=== PATIENT | female | born 1955 | race Caucasian/White ===

== ENCOUNTER 2017-08-05 10:32 | Day surgery (SDC) | payer OTHER ==
[2017-08-04 12:46] VITALS: BMI 44.2
[2017-08-05] MEDS ORDERED: Fentanyl 100 MCG/2 ML VIAL ONE ×4 (11:45→13:53)
[2017-08-05] MEDS ORDERED: Midazolam HCl 2 mg/2 ml Vial ONE ×2 (11:45→12:01)
[2017-08-05] MEDS ORDERED: Lidocaine 1% (PF) 30 ML VIAL ONE (11:49)
[2017-08-05] MEDS ORDERED: Propofol 200 MG/20 ML VIAL ONE (12:24)
[2017-08-05] MEDS ORDERED: Lidocaine 2% PF 10 ML AMP (For Epidural Use) ONE (12:24)
[2017-08-05] MEDS ORDERED: Ondansetron HCl/PF 4 MG/2 ML Vial ONE (13:36)
--- NOTE | 2017-08-05 14:10 | OP ---
DATE OF PROCEDURE: 08/05/2017 PREOPERATIVE DIAGNOSIS: Need for long-term central venous access for chemotherapy for lymphoma. POSTOPERATIVE DIAGNOSIS: Need for long-term central venous access for chemotherapy for lymphoma. PROCEDURE: Ultrasound guided left internal jugular vein access with a MediPort placement into the l eft internal jugular vein. ESTIMATED BLOOD LOSS: Less than 20 mL. FLUORO TIME: 33 seconds. SURGEON: Dr. Prince Aleman DESCRIPTION OF PROCEDURE: The patient was placed under general anesthesia in the operating room. L eft chest and neck were prepped and draped in usual sterile fashion. Multiple attempts at accessing the left subclavian vein were made and were unsuccessful. We transitioned to a jugular approach. Ultrasound guidance was used to access the left jugular vein. Guidewire was passed under fluoroscop ic guidance down into the superior vena cava. The MediPort site was then created on the chest wall. After the pocket was created, catheter was tunneled using a stiff tunneler from the pocket up into the jugular vein access site. The port was positioned nicely. Catheter was measured and cut to ap propriate length under fluoro guidance. Sheath was placed under fluoroscopy guidance and the cathet er passed through the sheath. The sheath was then peeled away and removed. The port was then acces sed and aspirated nicely. A flush was used to lock the port. Wounds were then closed in multiple l osorio, and Dermabond applied to the skin. The patient tolerated the procedure well, was awakened, e xtubated, and transferred to the recovery room in stable condition.
[2017-08-05] MEDS ORDERED: Ondansetron HCl/PF 4 MG/2 ML Vial IVP PRN (15:05)
[2017-08-05] MEDS ORDERED: Promethazine HCl 25 MG/ML VIAL IM/IV PRN (15:05)
== END 2017-08-05 15:25 | disposition home or self-care (01) ==
LOC: SDC 10:32
PROVIDERS: ATTEND Thoracic Surgery (Cardiothoracic Vascular Surgery)
PROC: 05HN33Z Insertion of Infusion Device into Left Internal Jugular Vein, Percutaneous Approach (ICD-10-PCS; principal; 2017-08-05)
DX: R59.0 Localized enlarged lymph nodes (principal); F17.210 Nicotine dependence, cigarettes, uncomplicated; Z90.721 Acquired absence of ovaries, unilateral; Z82.49 Family history of ischemic heart disease and other diseases of the circulatory system; Z80.9 Family history of malignant neoplasm, unspecified
CPT/HCPCS: 96374; C1788; J1642; J2001; J2250; J2405; J2704; J3010

== ENCOUNTER 2018-01-12 11:08 | Outpatient (CLI) | payer OTHER ==
--- NOTE | 2018-01-13 09:38 | PET ---
PET CT: HISTORY: A 62-year-old female with high-grade B-cell lymphoma, large B-cell lymphoma of follicular origin. Ex am requested for restaging. Last chemotherapy was in November 2017. TECHNIQUE: PET scanning with CT attenuation correction was performed from the base of the base of the brain thro ugh the proximal thighs following the intravenous administration of 13.2 mCi of [id number] in the left-sided Port-A-Cath. COMPARISON: None. CORRELATION: CT chest dated 10/07/17 from [facility]. FINDINGS: No sara hypermetabolism is seen in the neck, chest, axillae, or abdomen. There is a right-sided pre sacral lymph node with increased FDG localization and an SUV of 6.3. No hypermetabolic pulmonary nodules, liver, or adrenal lesions are seen. There are multiple hypermetabolic skeletal lesions including the left acromion (SUV 10.6), T11 verteb ral body (SUV 15), and right acetabulum (SUV 7.6 in the superior acetabulum and 5.8 in the posterior column). There is a hypermetabolic right paraspinal soft tissue mass extending from L1 to L3 levels with a maximum SUV of 20. IMPRESSION: Findings are consistent with viable lymphoma in the skeleton, right presacral lymph node, and right p araspinal soft tissues. POS: VERONICA
== END 2018-01-12 11:09 | disposition home or self-care (01) ==
LOC: PET 11:08
PROVIDERS: ATTEND Internal Medicine Hematology & Oncology
DX: C85.90 Non-Hodgkin lymphoma, unspecified, unspecified site (principal)
CPT/HCPCS: 78815; A9552